=== PATIENT | male | born 1960 | race Caucasian/White ===

== ENCOUNTER → 2016-12-28 | Outpatient (CLI) | payer OTHER ==
[~2016-12-28] MED LIST: ALLO100T PO; FLUT0.15 NAE; LISI20TA3 PO; OXYC1TAB3 PO; POTA1080 PO; TAMS0.4C38 PO
--- NOTE | 2016-12-28 09:23 | DIAGNOSTIC IMAGING REPORT ---
KUB CLINICAL HISTORY: Nephrolithiasis. Left ureteral stone. COMPARISON STUDY: KUB July 15, 2016. FINDINGS: 2 left pelvic calcifications measuring up to 6 mm likely left distal left ureteral calculi. The larger calculus was present on prior exam of July 15, 2016 while the 4 mm calculus was not within the distal left ureter on prior exam. There are multiple calculi/fragments within the left kidney. No right-sided urinary calculi are identified. Bowel gas pattern is normal. IMPRESSION: 1. Two suspected distal left ureteral calculi measuring up to 6 mm. 2. Numerous calculi/fragments within the mid to lower pole of the left kidney. Electronically signed by: Lauro Mckeon M.D. 12/28/2016 9:22 AM Dictated Date/Time: 12/28/2016 9:11 AM
[2016-12-28 10:10] LABS: BLOOD UREA NITROGEN 28 mg/dl (7-18); BUN/CREATININE RATIO 19.7 (10-20); CALCIUM 8.9 mg/dl (8.5-10.1); CARBON DIOXIDE 31 mmol/L (21-32); CHLORIDE 102 mmol/L (98-107); GLUCOSE 154 mg/dl (70-99); POTASSIUM 3.5 mmol/L (3.5-5.1); SODIUM 142 mmol/L (136-145)
== END | disposition home or self-care (01) ==
LOC: C.RAD 08:30
PROVIDERS: ATTEND Urology
DX: N20.0 Calculus of kidney (principal); N20.1 Calculus of ureter; N28.82 Megaloureter; I10 Essential (primary) hypertension; Z11.59 Encounter for screening for other viral diseases

== ENCOUNTER → 2018-03-02 | Outpatient (CLI) | payer OTHER ==
[~2018-03-02] MED LIST changes: -OXYC1TAB3 PO
[2018-03-02 16:46] LABS: BLOOD UREA NITROGEN 20 mg/dl (7-18); CALCIUM 9.2 mg/dl (8.5-10.1); CARBON DIOXIDE 30 mmol/L (21-32); CREATININE 1.05 mg/dl (0.60-1.40); GLUCOSE 89 mg/dl (70-99); POTASSIUM 4.3 mmol/L (3.5-5.1); SODIUM 140 mmol/L (136-145)
== END | disposition home or self-care (01) ==
LOC: C.LABBFT 12:06
PROVIDERS: ATTEND Physician Assistant Medical
DX: R79.9 Abnormal finding of blood chemistry, unspecified (principal)

== ENCOUNTER 2020-08-28 06:55 | Observation (INO) ==
--- NOTE | 2020-08-08 10:40 | PAT Medication Instructions ---
Medication Instructions Date of Service August 08, 2020 Home Medications cholecalciferol (vitamin D3) 25 mcg (1,000 unit) capsule 1,000 units PO QAM allopurinol 200 mg PO QAM fluticasone propionate 2 sprays INTRANASAL QAM furosemide 20 mg PO QAM lisinopril 40 mg PO QAM potassium citrate 10 meq PO QAM tamsulosin 0.4 mg PO QAM DO NOT take the morning of surgery cholecalciferol (vitamin D3) 25 mcg (1,000 unit) capsule 1,000 units PO QAM furosemide 20 mg PO QAM lisinopril 40 mg PO QAM potassium citrate 10 meq PO QAM Take morning of surgery With a small sip of water, OTHERWISE NOTHING TO EAT OR DRINK AFTER MIDNIGHT: allopurinol 200 mg PO QAM fluticasone propionate 2 sprays INTRANASAL QAM tamsulosin 0.4 mg PO QAM Other Notes If you have any questions please call us at [phone] or [phone] or [phone] or [phone]
--- NOTE | 2020-08-12 12:34 | Anesthesiology Consultation ---
Date of Service August 12, 2020 Assessment & Plan (1) Encounter for pre-operative examination: - Per assessment on 08/12: Travel screen negative x 2+ weeks (return from travel to [place], [place] 07/30). No crowds. Uses PPE/follows COVID precaution guidelines. No known COVID-19 positive contacts or current COVID-19 related symptoms. Surgeon arranging preop COVID testing. Awaiting results. - Possible difficult intubation: due to anatomy Chart Review Chart Review: Acceptable Risk for Surgery (pending surgeon-ordered PCP clearance) and Patient seen in Pre Admission Testing Teaching & Discussion Pre-Anesthesia Teaching/Discussion Notes: Instructed NPO after midnight before surgery,except medications with 15 cc of water. Medication instructions provided according to the PAT guidelines. History Surgery Operation Date: 08/28/20 09:00 Proposed Procedures p Left Total Knee Arthroplasty - Amos Brito MD Height/Weight Height: 6 ft 1 in Weight: 98.1 kg Allergies Allergy/AdvReac Type Severity Reaction Status Date / Time fentanyl Allergy Severe apnea Verified 08/12/20 12:31 codeine Allergy Unknown nasal rash Verified 08/12/20 12:31 Medications Home Medications Medication Instructions Recorded Confirmed Last Taken cholecalciferol (vitamin D3) 25 1,000 units PO QAM cap 06/03/19 08/02/20 Unknown mcg (1,000 unit) capsule allopurinol 200 mg PO QAM 08/02/20 08/02/20 Unknown fluticasone propionate 2 sprays INTRANASAL QAM 08/02/20 08/02/20 Unknown furosemide 20 mg PO QAM 08/02/20 08/02/20 Unknown lisinopril 40 mg PO QAM 08/02/20 08/02/20 Unknown potassium citrate 10 meq PO QAM 08/02/20 08/02/20 Unknown tamsulosin 0.4 mg PO QAM 08/02/20 08/02/20 Unknown Past Medical History Medical History (Updated 08/12/20 @ 12:43 by Maris De La Cruz) Benign prostate hyperplasia Fatty liver disease, nonalcoholic Gout hx Hyperlipidemia Hypertension Left ureteral stone hx Megaureter per records Memory loss mild difficulty translating from short to intermission coordinator memory s/p memory study (no significant findings per patient) Nephrolithiasis hx Exercise / Class Metabolic Activity II 4-5 Yardwork/Stairs/Walk up hill Past Family History Family History Unknown Diabetes Mother Diabetes Breast cancer Hypertension Father Gastric adenocarcinoma Sister No problems noted. Past Surgical History Surgical History History of arthroscopy of both knees History of colonoscopy History of tooth extraction wisdom teeth Past Anesthesia History No Hx of Anesthesia Complications and No Family Hx of Anesthesia Complications History of PONV No Hx of PONV and No Hx of Motion Sickness Social History Smoking Status: Never smoker Do You Dip or Chew Tobacco: No Hx Alcohol Use: Yes Alcohol type: beer, wine and hard liquor alcohol intake frequency: a few times a week Hx Substance Use: No substance use type: does not use Review of Systems Patient denies chest pain, shortness of breath, dyspnea on exertion, fever, chills, cough, wheezing, palpitations. Physical Exam Vital Signs VITALS BP 123/81 P 74 TEMP 98.0 SP02 97%RA RESP 18 PHYSICAL Full neck and c-spine range of motion. Full TMJ range of motion. TMD 2 finger breaths (small chin) Mallampati Score 3 Dentition: missing molars Lungs: clear throughout to auscultation Cardiac: regular rate and rhythm, no murmurs noted Spine: normal Carotid arteries: negative bruit Extremities: no edema Testing Laboratory Results PT 10.9 Seconds (9.0-12.0) 08/12/20 12:54 INR 1.0 (0.9-1.1) 08/12/20 12:54 APTT 29.2 Seconds (21.0-31.0) 08/12/20 12:54 Urine Color Yellow 08/12/20 Unknown Urine Appearance Clear (Clear) 08/12/20 Unknown Urine pH 6.5 (4.5-7.5) 08/12/20 Unknown Ur Specific [place] 1.010 (1.000-1.030) 08/12/20 Unknown Urine Protein Negative (Negative) 08/12/20 Unknown Urine Glucose (UA) Negative (Negative) 08/12/20 Unknown Urine Ketones Negative (Negative) 08/12/20 Unknown Urine Nitrite Negative (Negative) 08/12/20 Unknown Ur Leukocyte Esterase Negative (Negative) 08/12/20 Unknown Blood Type B Positive 08/12/20 12:54 Antibody Screen NEGATIVE 08/12/20 12:54 07/13/20 WBC 7.69 H/H 14.1/44.8 PLATELETS 163 07/05/20 HGBA1C 5.5% SODIUM 141 POTASSIUM 4.5 CHLORIDE 103 CO2 31 BUN 23 CREATININE 1.1 GLUCOSE 102 Electrocardiogram Date: 07/10/20 SR at 67bpm. Chest X-Ray Date: 08/12/20 FINDINGS: The cardiac and mediastinal contours are normal. There is no evidence of focal pulmonary consolidation. There is no evidence of failure. No pleural effusions are visualized.[ IMPRESSION: No active disease in the chest.
--- NOTE | 2020-08-12 13:35 | XRay Report ---
XR chest Pre-admission PA/Lat CLINICAL HISTORY: Preoperative chest COMPARISON STUDY: June 26, 2016 FINDINGS: The cardiac and mediastinal contours are normal. There is no evidence of focal pulmonary co nsolidation. There is no evidence of failure. No pleural effusions are visualized.[ IMPRESSION: No active disease in the chest. ACT 112: Negative or not required by law. Electronically signed by: Blake Maria M.D. 08/12/2020 1:34 PM
[2020-08-12 13:47] LABS: Partial Thromboplastin Time 29.2 Seconds (21.0-31.0); Prothrombin Time 10.9 Seconds (9.0-12.0)
[2020-08-12 13:58] LABS: Appearance Urine Clear (Clear); Bilirubin Urine Negative (Negative); Blood Urine Negative (Negative); Color Urine Yellow; Glucose Urine UA Negative (Negative); Ketones Urine Negative (Negative); Leukocyte Esterase Urine Negative (Negative); Nitrite Urine Negative (Negative); Protein Urine Negative (Negative); Urobilinogen Urine Negative (Negative); pH Urine 6.5 (4.5-7.5)
--- NOTE | 2020-08-27 10:41 | History & Physical Report ---
Date of Service August 27, 2020 Assessment & Plan (1) Left knee DJD: Postoperative prescriptions for Percocet and Coumadin will be provided at discharge from the hospital. Anticipate discharge to home with outpatient services. Prescription was provided for a walker. He will bring this with him the day of surgery. He has already seen Dr. Cagle for medical clearance. Preoperative lab work, EKG, and chest x-ray have been ordered today. Preoperative COVID testing was also ordered. The patient is aware of COVID-19 risks associated with surgery. He is currently asymptomatic of any COVID-19 symptoms. PDMP was checked and there are no concerning findings at this time. History of Present Illness Chief Complaint: Left knee pain Primary Care Provider: Oli Cagle MD This 59-year-old white male presents today for a longstanding history of left knee pain. He is scheduled to undergo a left total knee arthroplasty on . It has been ongoing for over 2 years. He has a distant history of bilateral ACL reconstructions about 14 years ago. He states they initially did well for several years. He has had increasing knee pain, left greater than right. He did try activity modification, oral anti-inflammatories, and viscosupplementation injections without improvement in the left knee. He did get some improvement in the right knee after viscosupplementation. No numbness or tingling. Pain is worse with weightbearing. It is affecting his ADLs. No catching or locking. No buckling. Preoperative imaging has been obtained. Allergies Allergy/AdvReac Type Severity Reaction Status Date / Time fentanyl Allergy Severe apnea Verified 08/12/20 12:31 codeine Allergy Unknown nasal rash Verified 08/12/20 12:31 Home Medications Home Medications Medication Instructions Recorded Confirmed Type cholecalciferol (vitamin D3) 25 1,000 units PO QAM cap 06/03/19 08/02/20 History mcg (1,000 unit) capsule lisinopril 40 mg PO QAM 08/02/20 08/02/20 History potassium citrate 10 meq PO QAM 08/02/20 08/02/20 History tamsulosin 0.4 mg PO QAM 08/02/20 08/02/20 History allopurinol 100 mg tablet 200 mg PO QAM #180 tab 08/15/20 Rx fluticasone propionate 50 2 spray INTRANASAL QAM #15.8 ml 08/15/20 Rx mcg/actuation nasal spray,suspension furosemide 20 mg tablet 20 mg PO QAM #90 tab 08/15/20 Rx Past Med/Surg History Medical History Benign prostate hyperplasia Fatty liver disease, nonalcoholic Gout hx Hyperlipidemia Hypertension Left ureteral stone hx Megaureter per records Memory loss mild difficulty translating from short to skilled nursing memory s/p memory study (no significant findings per patient) Nephrolithiasis hx Surgical History History of arthroscopy of both knees History of colonoscopy History of tooth extraction wisdom teeth Family History Unknown Diabetes Mother Diabetes Breast cancer Hypertension Father Gastric adenocarcinoma Sister No problems noted. Social History Smoking Status: Never smoker Second Hand Exposure: Yes (as a child); Hx Alcohol Use: Yes Alcohol type: beer, wine and hard liquor Alcohol Intake Frequency Comment: Intermittent alcohol use. Hx Substance Use: No Preferred Language: Gabonese Communication Ability: Effective Hearing Ability: Hard of Hearing Beliefs That Will Affect Care: None marital status: Current Living Situation: Spouse Current Living Situation Comment: current occupational status: employed current occupation: electrical products sales engineer Feels Safe at Home: Yes Seatbelt Use: always Review of Systems Review of Systems: All systems reviewed & are unremarkable except as noted in HPI & below A total of 10 systems were reviewed. Physical Exam Physical Exam: Vitals: Height 188 cm, weight 97.6 kilograms, BMI 27.5: Temperature 35.0 oral, BP 146/92, pulse 71, O2 sat 98% on room air. General: Well-developed, well-nourished middle-aged white male in no acute distress. Sitting on a bed. Alert and oriented. Skin: Warm and dry with good turgor. No rashes or lesions. No ecchymosis or erythema. No intraarticular effusion. HEENT: Normocephalic, atraumatic. Eyes: PERRLA, EOMI. Nares and oropharynx exams deferred due to COVID precautions. Heart: RRR, no MGR, occasional PVC noted. Lungs: Clear to auscultation bilaterally, no crackles, rhonchi or wheezing, good air movement. Abdomen: Bowel sounds present x4, soft, nontender. No organomegaly. No masses. Musculoskeletal: Left knee evaluation reveals no intraarticular effusion. He has full terminal extension. Flexion to greater than 100 degrees. Strength is 5/5 with good quad tone. Ambulates with a normal gait. Slight varus alignment. There is significant discomfort with palpation over the medial and lateral joint line in the left knee. No defect in the patellar tendon or quadriceps tendon. Palpable crepitus with motion in the left knee. Stable collateral ligaments. Neurologic: Gross sensation is intact across left leg by soft touch. Peripheral pulses are 2+. Results & Data Results & Data ([facility]) Diagnostic Findings Radiographic imaging previously obtained was reviewed. He has significant osteoarthritis in both knees, left greater than right. Periarticular osteophytes, joint space narrowing, and subchondral sclerosis are all present. He does have a retained ACL washer lock screw.
[~2020-08-28 06:55] MED LIST changes: -ALLO100T PO; +BUPIVACAINE 0.25% 30 ML VIAL ONE; +BUPIVACAINE 0.5 % 5 MG/1 ML PF 10ML VIAL ONE; -FLUT0.15 NAE; -LISI20TA3 PO; +LR 500ML BOLUS, THEN 15ML/HR IV SCH; +LR 60ML/HR IV SCH; -POTA1080 PO; +ROPIVACAINE 0.5% HCL/PF 150 MG, BUPIVACAINE 0.5% MPF 30 ML, EPINEPHrine 0.15 MG, Ketoro... INFIL SCH; -TAMS0.4C38 PO; +TRANEXAMIC ACID 1,000 MG **IV Intra-op IV SCH; +ceFAZolin 2000MG 2,000 MG/15 ML SYR IV SCH
[2020-08-28] MEDS ORDERED: MIDAZOLAM HCL 1 MG/ML 2ML VIAL ONE (07:41)
[2020-08-28] MEDS ORDERED: ATROPINE SULFATE 0.1 MG/ML 10ML SYR IV PRN (07:58)
[2020-08-28] MEDS ORDERED: ePHEDrine sulfate 50 MG/ML AMP IV PRN (07:58)
[2020-08-28] MEDS ORDERED: ONDANSETRON INJ 2 MG/ML 2 ML VIAL IV PRN ×2 (07:58→12:20)
--- NOTE | 2020-08-28 08:25 | History & Physical Bridge Note ---
Date of Service August 28, 2020 History & Physical Bridge Note I have examined the patient, reviewed the History & Physical and in the interval since the performance of the History & Physical I have noted the following changes of clinical significance:consent obtaioned/site verified/covid screen negative. no changes noted
[2020-08-28] MEDS ORDERED: ORTHO JOINT ANESTHETIC ONE (08:35)
[2020-08-28] MEDS ORDERED: LIDOCAINE HCL 2% 2 ML VIAL/AMP(20MG/ML) INFIL ONE (09:18)
[2020-08-28] MEDS ORDERED: PROPOFOL IV EMULSION 10 MG/ML 20 ML VIAL IV ONE ×2 (09:18→10:33)
--- NOTE | 2020-08-28 11:07 | Post Operative Brief Note ---
Immediate Post Op Note v1 Date of Surgery August 28, 2020 Pre & Post Diagnosis Operation Date: 08/28/20 09:00 Pre-Op Diagnosis: Left Knee Degenerative Joint Disease Post-Op Diagnosis: Left Knee Degenerative Joint Disease I identified the patient and participated in the time-out.: Yes Procedure Operation Date: 08/28/20 09:00 Actual Procedures p Left Total Knee Arthroplasty, Cemented(Left) - Amos Brito MD Surgeon Amos Brito MD Jewelry Consultant svetlana/keron Estimated Blood Loss 100 Findings Consistent with Post-Op Diagnosis
--- NOTE | 2020-08-28 11:14 | Operative Report ---
Post Operative Report Pre & Post Diagnosis Operation Date: 08/28/20 09:00 Pre-Op Diagnosis: Left Knee Degenerative Joint Disease Post-Op Diagnosis: Left Knee Degenerative Joint Disease I identified the patient and participated in the time-out.: Yes Procedure Operation Date: 08/28/20 09:00 Actual Procedures p Left Total Knee Arthroplasty, Cemented(Left) - Amos Brito MD Surgeon KAILA Brito MD Divemaster svetlana/keron LEMUS Estimated Blood Loss 100 Findings Consistent with Post-Op Diagnosis Specimens see operative report Drains none Complications none Disposition Accompanied Patient To Recovery: Yes Disposition: Recovery Room Indications This 59-year-old white male presented to the office with complaints of persisting left knee pain. He had tried conservative care measures without improvement. There is a history of old ACL reconstruction many years ago. He elected to proceed with surgical intervention after being educated about potential risks and outcomes. Preoperative imaging was obtained. Description of Procedure Patient was administered a spinal anesthetic and then taken to the operating room where he was given sedation. He was prepped and draped in the usual sterile fashion. Please see Dr. Brito's operative report for specifics of the procedure. I was present for the entire case from initial patient positioning through final wound closure. Assistance was provided in tissue retraction, hemostasis, trial implant placement, final implant placement, and final wound closure. Patient was taken to the recovery room in satisfactory condition. I attest to the content of the Intraoperative Record and any orders documented therein. Any exceptions are noted below.
--- NOTE | 2020-08-28 11:22 | Operative Report ---
Post Operative Report Pre & Post Diagnosis Operation Date: 08/28/20 09:00 Pre-Op Diagnosis: Left Knee Degenerative Joint Disease Post-Op Diagnosis: Left Knee Degenerative Joint Disease I identified the patient and participated in the time-out.: Yes Procedure Operation Date: 08/28/20 09:00 Actual Procedures p Left Total Knee Arthroplasty, Cemented(Left) - Amos Brito MD Surgeon Amos Brito MD Web Services Developer svetlana/keron LEMUS Estimated Blood Loss 100 Findings Consistent with Post-Op Diagnosis Specimens Bone cuts Drains None Anesthesia Type Spinal MAC Complications none Disposition Accompanied Patient To Recovery: Yes Disposition: Recovery Room Indications End-stage left knee osteoarthritis Description of Procedure As per Dr. Brito's note, I assisted in prepping and draping, instrument handling, certain parts of the procedure and wound closure I attest to the content of the Intraoperative Record and any orders documented therein. Any exceptions are noted below.
--- NOTE | 2020-08-28 11:27 | XRay Report ---
LEFT KNEE 2 VIEWS History: Left total knee arthroplasty. Degenerative arthritis. Postop. FINDINGS: The patient is status post a left total knee arthroplasty. The hardware is intact. No fract ure or dislocation. Skin angelica are in place. IMPRESSION: Left total knee arthroplasty. No evidence for hardware complication. ACT 112: Negative or not required by law. Electronically signed by: Vic Wayne M.D. 08/28/2020 11:26 AM
[2020-08-28] MEDS ORDERED: ACETAMINOPHEN 1000 MG/100 ML IV IV ONE (11:37)
--- NOTE | 2020-08-28 11:37 | Operative Report (OR) ---
DATE OF OPERATION: 08/28/2020 SURGEON: Amos Brito MD. STONEMASON APPRENTICE: Qian. SECOND STONEMASON APPRENTICE: Gasper Romano PA-C. PREOPERATIVE DIAGNOSIS: Tricompartmental osteoarthritis with varus flexion deformity, left knee. POSTOPERATIVE DIAGNOSIS: Tricompartmental osteoarthritis with varus flexion deformity, left knee. OPERATION PERFORMED: 1. Cemented left knee replacement. 2. Extraction of Arthrotek WasherLoc and screw system from the tibia. PERIOPERATIVE SITUATION: Medically cleared male with intractable knee pain, history of ACL reconstruction decades ago. Has tricompartmental osteoarthritis with flexion varus deformity and has a retained hardware in the tibia. This will be in the way of the tibial baseplate. DESCRIPTION OF PROCEDURE: The patient was appropriately identified, site verified, consent verified. Antibiotics confirmed as being given. The left lower extremity was prepped and draped in usual routine fashion. Tourniquet was inflated to 275 mmHg for a total of approximately 89 minutes. The old incision from the ACL was utilized and extended proximally. Full thickness flaps were raised. Parapatellar arthrotomy performed. Synovectomy completed, osteophytes resected. Distal femur then entered, resected 14 mm, proximal tibia resected 4 mm, extension gap was excellent. The tibial screw was removed. There was bone overgrowth. It had to be trimmed all out before the screw could be found and then it was removed. The spiked Arthrotek WasherLoc was left in place to see if it could be avoided from being extracted as there was marked bone over it. The femur was sized to a 4, appropriate cutting block applied. Anterior, posterior condylar and chamfer cuts made. The flexion gap was excellent. The box cut was then made and the size 4 fit well. The tibia was then subluxated anteriorly. The base plate 4 was placed and pinned into position, and when I was reaming, we were hitting the Arthrotek spiked washer, so that needed to be removed. It required burring, bone trimming carefully and then ultimately lifting it out. This area was then grafted when the knee placement was placed. Once this was all out, the base plate was then secured and the size 4 fit well with a 12.5 spacer. The patella was quite thick. It was resected leaving about 15-16 mm and the 41 patella fit well. Seating holes were made and then the patella tracked well. The Orthomix was then all injected both posteriorly and anteriorly through the knee. All trial elements were removed. The wound was irrigated with Betadine and Pulsavac and then the permanent cemented in position, tibia, femur and patella in that order. At 12 minutes, the tourniquet was deflated. Minor bleeding points were controlled with electrocautery. At 14 minutes, the knee was flexed, the knee was subluxated, the trial spacer removed. The knee was irrigated. There was no cement removal required. The permanent liner seated. The knee reduced and closed at 40 degrees of flexion with #2 Vicryl, 2-0 Vicryl and stainless steel clips. Appropriate dressing applied. Estimated EBL was 100 mL. Crystalloid per anesthesia. Bone pathology pending on bone. The procedure was then terminated after all instruments and fluid cleared. Again, the wound closure was #2 Vicryl, 2-0 Vicryl and stainless steel clips. Appropriate dressing applied. The patient was transferred to recovery room in satisfactory condition having tolerated the procedure well. SUMMARY OF IMPLANTS: Size 4 left femur posterior cruciate substituting, size 4 mobile bearing tray, size 41 patella, size 4 x 12.5 mm insert posterior cruciate substituting, 2 bags of Pal[place]os G cement. ESTIMATED BLOOD LOSS: 100 mL. PATHOLOGY: Pending on bone. CRYSTALLOID: Per anesthesia. I attest to the content of the Intraoperative Record and any orders documented therein. Any exceptions are noted below. MTDD
--- NOTE | 2020-08-28 12:10 | Progress Notes ---
DATE: 08/28/2020 SUBJECTIVE: Postop check status post left total knee replacement with extraction of tibial hardware. At this point in time, he is comfortable resting in the recovery room, has no issues. Denies any chest pain, shortness of breath, fever, chills, nausea, vomiting or headache. OBJECTIVE: Vital signs are stable. He is afebrile. Postop x-rays look excellent. Spinal is wearing off, can start to roll his legs. No active extension or flexion of the ankle or foot on either side. Assessment of his x-rays, AP and lateral look excellent. All hardware was removed. ASSESSMENT: Status post left total knee replacement, removal of hardware, doing well. Continue with care pathway. Discharged to home tomorrow if he does well overnight.
[2020-08-28] MEDS ORDERED: NALOXONE HCL 0.4 MG/1 ML VIAL/CARP IV PRN (12:20)
[2020-08-28] MEDS ORDERED: bisacodyL 10 MG SUPP PR PRN (12:20)
[2020-08-28] MEDS ORDERED: HYDROmorphone INJ 0.5 MG/0.5 ML SYR IV PRN (12:20)
[2020-08-28] MEDS ORDERED: oxyCODONE HCL IR 5 MG TAB (IMMEDIATE RELEASE) PO PRN (12:20)
[2020-08-28] MEDS ORDERED: SODIUM CHLORIDE 0.9% 1000ML 1,000 ML IV SCH (12:20)
[2020-08-28] MEDS ORDERED: MAGNESIUM HYDROXIDE SUSP 30 ML UDC PO PRN (12:20)
[2020-08-28] MEDS ORDERED: diphenhydrAMINE 50 MG/ML VIAL IV PRN (12:20)
[2020-08-28] MEDS ORDERED: METOCLOPRAMIDE HCL INJ 5 MG/ML 2 ML VIAL IV PRN (12:20)
[2020-08-28] MEDS ORDERED: ALUMINUM/MAGNESIUM SUSP 30 ML UDC PO PRN (12:20)
--- NOTE | 2020-08-28 12:20 | Discharge Summary (DS) ---
CHIEF COMPLAINT: DJD, left knee. HISTORY OF PRESENT ILLNESS: Underwent an elective left total knee replacement for correction of flexion varus deformity with retained tibial hardware from ACL reconstruction done decades ago. Preoperative x-rays look tricompartmentally diseased. Postop x-rays look excellent. History of present illness is a deep pain been there for decades. At this point in time, wants to proceed with surgical treatment. MEDICATIONS: Med reconciliation sheet is as noted and documented, this will not be duplicated here. ALLERGIES: FENTANYL, WHICH CAUSED HIM SOME APNEA WHICH IS REALLY NOT AN ALLERGY, IT WAS MORE OF AN OVERDOSE AND CODEINE, WHICH GIVES HIM A RASH. PAST MEDICAL HISTORY: Remarkable for benign prostatic hyperplasia, nonalcoholic fatty liver, history of gout, history of hyperlipidemia, hypertension, ureteral stone, megaureter, memory loss, nephrolithiasis. PAST SURGICAL HISTORY: History of arthroscopy, colonoscopies, tooth extractions, ACL reconstruction in both knees. FAMILY HISTORY: Remarkable for diabetes, breast cancer, hypertension in the mother. Gastric adenocarcinoma in the father. No other problems noted. SOCIAL HISTORY: Reveals that he lives with his family. Does not smoke. Social alcohol. Feels safe at home. REVIEW OF SYSTEMS: Reveals no chest pain, shortness of breath, fever, chills, nausea, vomiting or headache. Postop x-rays look excellent. ASSESSMENT: Doing well status post left total knee replacement with hardware extraction. At this point, discharge to home tomorrow if he does well today. Coumadin deep vein thrombosis prophylaxis.
[2020-08-28] MEDS: KETOROLAC 30 MG/ML VIAL IV SCH ×2 (13:35→19:49)
--- NOTE | 2020-08-28 13:59 | Anesthesiology Progress Note ---
Date of Service August 28, 2020 Anesthesia Post Procedure Vital Signs Vital Signs: Temp Pulse Pulse Pulse Resp BP Pulse Ox 08/28/20 13:21 74 16 136/89 97 08/28/20 12:38 71 16 128/85 97 08/28/20 12:05 79 18 118/76 97 08/28/20 11:42 36.4 C L 84 16 120/83 96 08/28/20 11:35 86 16 114/76 98 08/28/20 11:25 88 16 120/80 98 08/28/20 11:15 36.3 C L 98 H 16 111/68 98 08/28/20 08:20 108 H 18 142/91 H 96 Pain Intensity Left Knee: Pain Intensity: 0 Transfer of Care Handoff Completed per policy Notes Mental Status: alert / awake / arousable and participated in evaluation Patient Amnestic to Procedure: Yes Nausea / Vomiting: adequately controlled Pain: adequately controlled Airway Patency, RR, SpO2: stable & adequate BP & HR: stable & adequate Hydration State: stable & adequate Neuraxial Anesthesia: was administered and sensory block is resolving Anesthetic Complications: no major complications apparent and Pt Satisfied with anesthetic care
[2020-08-28] MEDS ORDERED: ORTHO WARFARIN NOMOGRAM SCH (14:00)
[2020-08-28] MEDS ORDERED: INFLUENZA ADMINISTRATION CHARGE ONE (16:00)
[2020-08-28] MEDS ORDERED: WARFARIN SOD 5 MG TAB PO ONE (16:00)
[2020-08-28] MEDS ORDERED: INFLUENZA VIRUS QUAD VACCINE 0.5 ML SYR IM ONE (16:00)
[2020-08-28] MEDS: FERROUS GLUCONATE 324 MG TAB PO SCH (16:35)
[2020-08-28] MEDS: ASCORBIC ACID 500 MG TAB PO SCH (16:36)
[2020-08-28] MEDS ORDERED: TRANEXAMIC ACID / 0.7% NACL 1,000 MG/100 ML BAG IV SCH (17:30)
[2020-08-28] MEDS: ceFAZolin 2000MG 2,000 MG/15 ML SYR IV SCH (18:04)
[2020-08-28] MEDS: ACETAMINOPHEN 500 MG TAB PO SCH (19:49)
[2020-08-28] MEDS: DOCUSATE SODIUM 100 MG CAP PO SCH (19:59)
[2020-08-28] MEDS ORDERED: SENNA 8.6 MG TAB PO SCH (21:00)
[2020-08-29] MEDS: ceFAZolin 2000MG 2,000 MG/15 ML SYR IV SCH (00:02)
[2020-08-29] MEDS: KETOROLAC 30 MG/ML VIAL IV SCH ×2 (02:55→09:09)
[2020-08-29] MEDS: ACETAMINOPHEN 500 MG TAB PO SCH (05:46)
[2020-08-29 06:12] LABS: Hematocrit (blood only) 35.4 % (42-52); Hemoglobin 11.8 g/dL (14.0-18.0); Mean Corpuscular Hemoglobin 28.7 pg (25-34); Mean Corpuscular Hgb Conc 33.3 g/dL (32-36); Mean Corpuscular Volume 86.1 fL (80-100); Mean Platelet Volume 10.5 fL (7.4-10.4); Platelet Count 146 K/uL (130-400); RDW Coefficient of Variation 13.5 % (11.5-14.5); RDW Standard Deviation 42.4 fL (36.4-46.3); Red Blood Count 4.11 M/uL (4.7-6.1); White Blood Count 11.86 K/uL (4.8-10.8)
[2020-08-29 06:18] LABS: INR 1.1 (0.9-1.1); Prothrombin Time 11.3 Seconds (9.0-12.0)
[2020-08-29 06:39] LABS: BUN Creatinine Ratio 19.3 (10-20); Creatinine Clr Calc Pharmacy 91.2 ml/min; Est GFR (African American) 86.3; Est GFR (Non-African American) 74.4; Potassium 4.1 mmol/L (3.5-5.1)
--- NOTE | 2020-08-29 06:49 | Progress Notes ---
DATE: 08/29/2020 SUBJECTIVE: Postop check. Postop day #1 status post left total knee replacement. The patient is doing well, has no pain. OBJECTIVE: His vital signs are stable. He is afebrile. Denies chest pain, shortness of breath, fever, chills, nausea, vomiting, or headache. Wound dressing clean, dry and intact. Femoral sciatic nerve functioning well. Hematocrit stable. INR pending. ASSESSMENT AND PLAN: Doing well. Discharged to home today. Coumadin dose per nomogram.
[2020-08-29] MEDS ORDERED: dexAMETHasone 10 MG in SYRINGE 0 ML IV SCH (08:00)
[2020-08-29] MEDS ORDERED: WARFARIN SOD 5 MG TAB PO SCH (08:33)
[2020-08-29] MEDS ORDERED: TAMSULOSIN HCL 0.4 MG CAP PO SCH (09:00)
[2020-08-29] MEDS ORDERED: FUROSEMIDE 20 MG TAB PO SCH (09:00)
[2020-08-29] MEDS ORDERED: lisinopriL 40 MG TAB PO SCH (09:00)
[2020-08-29] MEDS ORDERED: FLUTICASONE PROPIONATE NA SPR 16 GM BTL NAE SCH (09:00)
[2020-08-29] MEDS ORDERED: POTASSIUM CITRATE 10 MEQ TAB PO SCH (09:00)
[2020-08-29] MEDS ORDERED: allopurinoL 100 MG TAB PO SCH (09:00)
[2020-08-29] MEDS ORDERED: MULTIVITAMIN TAB PO SCH (09:00)
[2020-08-29] MEDS: ASCORBIC ACID 500 MG TAB PO SCH (09:08)
[2020-08-29] MEDS: DOCUSATE SODIUM 100 MG CAP PO SCH (09:09)
[2020-08-29] MEDS: FERROUS GLUCONATE 324 MG TAB PO SCH (09:09)
--- NOTE | 2020-08-29 11:15 | Orthopedic Progress Note ---
Date of Service August 29, 2020 Assessment & Plan (1) Status post total left knee replacement using cement: Patient's dressings were changed today by me. They will be left in place until Wednesday, at which time they can be changed as needed for soiling. Coumadin today per nomogram. Continue Coumadin 4 mg daily on Wednesday, Wednesday, and Wednesday, and have the blood work rechecked on Wednesday Ambulate with his walker and knee immobilizer. Continue the knee immobilizer until Wednesday morning, and then discontinue the knee immobilizer PT/OT today Anticipate discharge to home today with home health services Follow-up in the office in 2 weeks as scheduled for staple removal written discharge instructions have been provided. Prescriptions for Percocet and Coumadin have been sent into [facility]. Admission and Anticipated Discharge Date Admission Date: August 28, 2020 Subjective Patient is seen in his room this morning. He is sitting in a chair. Alert, aw mariano, and conversive. He states he did well overnight. He is surprised at how little pain he has. He has been up and ambulatory. Denies any chest pain, shortness of breath, nausea, vomiting, or abdominal pain. He has already eaten breakfast. Desires to be discharged to home today. Review of Systems Review of Systems: Unchanged from yesterday. Physical Exam Physical Exam: General: Well-developed, well-nourished, middle-aged white male, in no acute distress. Sitting in a chair. Alert and oriented. Skin: Warm and dry with good turgor. No rashes or lesions. Expected postoperative ecchymosis. No edema in the left leg. Musculoskeletal: Left knee evaluation reveals intact postsurgical dressings. Upon removal, he has a moderate amount of dried blood present on the dressings. There is no current active bleeding. [place] are intact. Wound edges are well approximated. No erythema. Patient has intact motor function to his left hip, knee, ankle, and toes. He is able to perform a straight leg raise. Nearly full terminal extension. Flexion to around 60 degrees without difficulty. Neurologic: Gross sensation is intact across the left leg by soft touch. Peripheral pulses are 2+. Results & Data ([facility]) Vital Signs (Past 12 Hours) Vital Signs Temp Pulse Pulse Pulse Resp BP Pulse Ox 08/29/20 10:32 36.6 C 84 70 75 16 128/81 97 10/15/20 08:37 36.6 C 84 70 75 16 128/81 97 08/29/20 07:32 36.6 C 75 16 128/81 97 08/29/20 02:56 37.0 C 74 18 142/75 H 96 08/28/20 23:22 36.4 C L 70 16 118/75 97
[2020-08-29] MEDS ORDERED: WARFARIN SOD 0.5 MG TAB PO SCH (16:00)
== END 2020-08-29 11:03 | disposition home health service (06) ==
LOC: ASU 06:55 → 3E 06:55